=== PATIENT | male | born 1960 ===

== ENCOUNTER 2020-11-02 08:34 | Emergency (ER) | payer OTHER ==
[2020-11-02] MEDS ORDERED: Lidocaine 1% w/Epinephrine 1:100K 20 ML VIAL ONE (08:47)
== END 2020-11-02 09:29 | disposition home or self-care (01) ==
LOC: ERS 08:34
DX: L02.212 Cutaneous abscess of back [any part, except buttock and flank] (principal); L03.312 Cellulitis of back [any part except buttock and flank]
CPT/HCPCS: 10060; 87070; 87205